=== PATIENT | female | born 1995 | race Caucasian/White ===

== ENCOUNTER 2021-07-20 22:00 | Observation (INO) | payer OTHER ==
[~2021-07-20] VITALS: Ht 154.9 cm; Wt 74.4 kg
[2021-07-20] MEDS ORDERED: PNV91TAB8 PO (23:46)
== END 2021-07-20 23:59 | disposition home or self-care (01) ==
LOC: MLD 22:00
PROVIDERS: ADMIT Obstetrics & Gynecology; ATTEND Obstetrics & Gynecology
DX: O35.8XX0 Maternal care for other (suspected) fetal abnormality and damage, not applicable or unspecified (principal); Z3A.39 39 weeks gestation of pregnancy
CPT/HCPCS: 76815; G0378; Q0092